=== PATIENT | female | born 1985 | race Caucasian/White ===

== ENCOUNTER → 2023-01-06 | Outpatient (CLI) | payer OTHER ==
--- NOTE | 2023-01-06 16:04 | CT ---
EXAMINATION TYPE: CT abdomen pelvis wo con DATE OF EXAM: 01/06/2023 COMPARISON: Normal. HISTORY: RT side flank pain. Pt was told she had a bladder infection by urgent care this morning. CT DLP: 714 mGycm Automated exposure control for dose reduction was used. TECHNIQUE: Helical acquisition of images was performed from the lung bases through the pelvis. FINDINGS: LUNG BASES: No significant abnormality is appreciated. LIVER/GB: No significant abnormality is appreciated. PANCREAS: No significant abnormality is seen. SPLEEN: No significant abnormality is seen. ADRENALS: No significant abnormality is seen. KIDNEYS: There is some minimal stranding seen along the inferior aspect of the right kidney which may relate to infection. There is no hydronephrosis versus renal stone otherwise seen. FREE AIR: No free air is visualized RETROPERITONEAL ADENOPATHY: None visualized REPRODUCTIVE ORGANS: No significant abnormality is seen URINARY BLADDER: No significant abnormality is seen. PELVIC ADENOPATHY: None visualized. OSSEOUS STRUCTURES: No significant abnormality is seen. BOWEL: No significant abnormality is seen. OTHER: IMPRESSION: 1. FINDINGS SUSPICIOUS FOR RIGHT-SIDED PYELONEPHRITIS. 2. NO RENAL STONES OR HYDRONEPHROSIS IS OTHERWISE SEEN.
[2023-01-07 03:35] LABS: Basophils # (A) 0.07 X 10*3/uL (0.00-0.10); Basophils % (A) 0.7 %; Eosinophils # (A) 0.21 X 10*3/uL (0.04-0.35); Eosinophils % (A) 2.2 %; HCT 39.1 % (37.2-46.3); HGB 13.2 d/dL (12.0-15.0); Lymphocytes # (A) 2.07 X 10*3/uL (0.90-5.00); Lymphocytes % (A) 21.4 %; MCH 31.4 pg (27.0-32.0); MCHC 33.8 d/dL (32.0-37.0); MCV 93.1 FL (80.0-97.0); Mean Platelet Volume 11.9 FL (9.5-12.2); Monocytes # (A) 1.14 X 10*3/uL (0.20-1.00); Monocytes % (A) 11.8 %; NRBC Per 100 WBC 0 X 10*3/uL (0.00-0.01); Neutrophils # (A) 6.14 X 10*3/uL (1.80-7.70); Neutrophils % (A) 63.6 %; Platelet Count 157 X 10*3/uL (140-440); RDW 12.6 % (11.5-14.5); WBC 9.66 X 10*3/uL (4.50-10.00)
[2023-01-07 03:46] LABS: ALT 9 U/L (8-44); AST 17 U/L (13-35); Albumin 4.3 d/dL (3.8-4.9); Albumin/Globulin Ratio 1.87 Ratio (1.60-3.17); Alkaline Phosphatase 46 U/L (41-126); BUN/Creat Ratio 8.75 Ratio (12.00-20.00); Calcium 9.6 mg/dL (8.7-10.3); Chloride 105 mmol/L (96-109); Globulin 2.3 d/dL (1.6-3.3); Glucose 98 mg/dL (70-110); Potassium 4.4 mmol/L (3.5-5.5); Sodium 140 mmol/L (135-145); Total Bilirubin 0.5 mg/dL (0.3-1.2); Total Protein 6.6 d/dL (6.2-8.2)
[2023-01-07 04:17] LABS: Erythrocyte Sedimentation Rate 2 mm/Hr (0-20)
== END | disposition home or self-care (01) ==
LOC: RADCTMAIN 15:29
PROVIDERS: ATTEND Family Medicine
DX: R10.9 Unspecified abdominal pain (principal); N30.90 Cystitis, unspecified without hematuria
CPT/HCPCS: 74176; 80053; 85025; 85652; 86140